=== PATIENT | male | born 1945 | race Caucasian/White ===

== ENCOUNTER 2018-03-02 08:56 | Emergency (ER) | payer MEDICARE, SELFPAY ==
[2018-03-02] VITALS (9 sets, daily range): BP systolic 133–158; BP diastolic 83–107; PULSE 79–93; RESP 14–18; O2SAT 94–99
--- NOTE | 2018-03-02 08:58 | ED_ITS ---
HPI - Neuro Symptoms/Deficit General Chief Complaint: Neuro Symptoms/Deficit Stated Complaint: code stroke Time Seen by Provider: 03/02/18 08:57 Source: patient, family and EMS Mode of arrival: EMS Limitations: no limitations History of Present Illness HPI Narrative: This is a 72-year-old male who comes in with concern for stroke patient was at home he states he felt like he was almost outside his body and fell over from sitting on the bed onto the floor. He states that his speech was very slurred and he could not speak correctly. He states that it is getting better he is not sure if it is back to normal. Patient also not able to use his right upper extremity properly and felt like it was numb. EMS states the was also having difficulty with his right leg. His also agrees with these findings. Patient denies any numbness or weakness that he is noting right now. He does not have any headache, he has not had any vision changes, he has not had any chest pain or shortness of breath, he denies any nausea or vomiting no GI or urinary symptoms. Patient does have known atrial fibrillation and is on Eliquis. He takes this regularly. Patient has had an ablation in the past which was unsuccessful, he has a loop recorder in place on his had hemorrhoid surgery. He sees a rn neonatal icu and they were adjusting his Coreg because his heart rate was too fast. They had increased it but his blood pressure was dropping he was feeling lightheaded so he had returned back to normal level. Patient has not had any prior strokes. He does not smoke he drinks alcohol occasionally, no illicit. He lives in [facility] with his . Related Data Home Medications Medication Instructions Recorded Confirmed apixaban [Eliquis] 5 mg #0 04/28/17 carvedilol [Coreg] #0 04/28/17 digoxin [Lanoxin] 0.125 mg PO QDAY #0 04/28/17 Previous Rx's Medication Instructions Recorded furosemide [Lasix] 20 mg PO Q DAY #10 tab 04/28/17 Allergies Allergy/AdvReac Type Severity Reaction Status Date / Time No Known Allergies Allergy Uncoded 07/11/17 12:50 Review of Systems Review of Systems All systems reviewed & are unremarkable except as noted in HPI and below Constitutional Reports weakness ENT Ears, Nose, Mouth, and Throat: Denies neck pain Cardiovascular Denies dyspnea and Denies dyspnea on exertion Respiratory Denies cough, Denies dyspnea, Denies dyspnea on exertion and Denies wheezing Gastrointestinal Gastrointestinal: Denies abdominal pain, Denies change in bowel habits, Denies diarrhea, Denies nausea and Denies vomiting Genitourinary Denies difficulty urinating Musculoskeletal Denies back pain and Denies neck pain Neurologic Reports as per HPI, Reports abnormal speech, Denies confusion, Reports focal weakness, Reports sensory deficit and Reports weakness Psychiatric Denies confusion Allergic/Immunologic Denies wheezing PFSH Medical History Status post placement of implantable loop recorder (Acute) Surgical History H/O: hemorrhoidectomy (Acute) S/P ablation of atrial fibrillation (Acute) Social History marital status: details: Lives in [facility] household members: spouse Smoking Status: Never smoker alcohol intake: current substance use type: does not use Exam Narrative Exam Narrative: GEN: well nourished, well appearing male, alert and oriented x 3 , patient appears to be in mild distress. HEENT: Atraumatic, pupils are equal round reactive to light, extraocular movements are intact, nares are clear, TMs are clear with no fluid, there is no conjunctival pallor. Throat is clear without any exudates, erythema, tonsillar enlargement or uvular deviation, no facial droop. HEART: Regular rate and rhythm without murmur, clicks, rubs. Pulses are equal in upper and lower extremities LUNGS:Lungs clear to auscultation, no wheezes, rales, crackles, chest moves symmetrically ABD:bowel sounds normal, soft, non-tender, no guarding, rebound, rigidity, no masses noted, no hepatosplenomegaly :No CVA tenderness MSCL: Non-tender, no muscle atrophy, muscles strength 5/5 upper and lower extremities, full range of motion, gait not tested. NEURO:CN 2-12 intact, sensation normal with the exception of feeling different on the right versus left but does feel sensation to light touch, reflexes 2/4 upper and lower extremities. finger nose finger test normal, heel amado test normal, romberg normal Initial Vital Signs Initial Vital Signs: Vital Signs Pulse Rate 93 H 03/02/18 09:10 Respiratory Rate 16 03/02/18 09:10 Blood Pressure 156/102 H 03/02/18 09:10 Pulse Oximetry 99 03/02/18 09:10 Scores NIH Stroke Scale Level of Conciousness: Alert, keenly responsive Ask month/age: Answers both questions correctly. Open/close eyes, close hand: Performs both tasks correctly Best gaze horizontal: Normal Visual coleman: No visual loss Facial palsy: Normal symetrical movement Left arm drift: No drift for full 10 sec Right arm drift: No drift for full 10 sec Left leg drift: No drift for full 10 sec Right leg drift: No drift for full 10 sec Limb ataxia: Absent Sensory on face/arms/legs: Mild to moderate sensory loss, can tell touch Best language: No aphasia, normal Dysarthria: Normal Extinction or inattention: No abnormality Total NIH Stroke scale score: 1 Course Orders Ordered: ED Orders 03/02/18 08:45 Basic Metabolic Panel Stat Complete Blood Count AUTO DIFF Stat Partial Thromboplastin Time Stat Prothrombin Time INR Stat Troponin I Stat 03/02/18 08:56 CT angio head and neck Stat CT head/brain wo con Stat XR chest 1V Stat Urine Drug Screen, Rapid Stat 03/02/18 09:07 EKG-12 Lead Stat Discontinued Medications Aspirin (Aspirin) 325 mg PO NOW ONE Stop: 03/02/18 09:31 Last Admin: 03/02/18 10:12 Dose: Aspirin (Aspirin Chew) 324 mg PO NOW ONE Stop: 03/02/18 10:14 Last Admin: 03/02/18 10:13 Dose: 324 mg Sodium Chloride (Normal Saline 0.9%) 1,000 mls @ 150 mls/hr IV CONT SCAR Last Admin: 03/02/18 10:08 Dose: 150 mls/hr Vital Signs - 8 hr 03/02/18 09:10 03/02/18 09:20 03/02/18 10:10 Pulse Rate 93 H 90 86 Respiratory Rate 16 17 17 Blood Pressure [Right Arm] 156/102 H 149/83 H 134/100 H Pulse Oximetry 99 99 98 03/02/18 10:20 03/02/18 10:40 03/02/18 11:00 Pulse Rate 83 79 80 Respiratory Rate 14 15 18 Blood Pressure [Right Arm] 133/84 134/86 136/83 Pulse Oximetry 99 97 94 03/02/18 11:15 03/02/18 11:30 03/02/18 11:45 Pulse Rate 88 86 85 Respiratory Rate 16 15 Blood Pressure [Right Arm] 158/107 H 150/99 H 156/91 H Pulse Oximetry 98 98 MDM - Neuro Symptoms/Deficit Lab Data Attestation: I reviewed the patient's lab results. Result diagrams: 03/02/18 08:45 03/02/18 08:45 Lab Results 03/02/18 03/02/18 03/02/18 Range/Units 08:45 08:45 08:45 WBC 5.9 (4.5-11.0) X10^3/uL RBC 4.34 L (4.5-5.9) X10^6/uL Hgb 14.3 (13.5-17.5) g/dL Hct 41.9 (41-53) % MCV 96.5 (80-100) fL MCH 32.9 (26-34) PG MCHC 34.1 (30-36) % RDW 14.5 (11.6-14.8) % Plt Count 96 L (150-400) X10^3/uL Neut % (Auto) 46.5 L (50-75) % Lymph % (Auto) 36.7 (25-40) % [place] % (Auto) 13.9 (3-14) % Eos % (Auto) 2.3 (2-4) % Baso % (Auto) 0.6 (0-2) % Neut # (Auto) 2700 L (7902-8427) /uL PT 15.9 H (10.1-12.7) SECONDS INR 1.5 H (0.9-1.3) APTT 43 H (26.4-36.2) SECONDS Sodium 144 (137-145) mmol/L Potassium 3.9 (3.4-5.1) mmol/L Chloride 103 (98-107) mmol/L Carbon Dioxide 28 (22-32) mmol/L BUN 19 (9-20) mg/dL Creatinine 0.70 (0.66-1.25) mg/dL Estimated GFR > 60.0 (>60) mL/min BUN/Creatinine Ratio 27.1 H (6-22) Glucose 110 (80-110) mg/dL Calcium 9.3 (8.4-10.2) mg/dL Troponin I 0.012 (0.01-0.034) ng/mL Point of Care Testing Glucose POC 108 Urine Dip Bedside Urine Glucose Negative Bedside Urine Bilirubin - Negative Bedside Urine Ketone - Negative Urine Specific [place] 1.020 Bedside Urine Occult Blood - Negative Bedside Urine pH 6.0 Bedside Urine Protein - Negative Bedside Urine Urobilinogen - Negative Bedside Urine Nitrite - Negative Bedside Urine Leukocytes - Negative Esterase Imaging Data CT scan - head: Radiologist's impression: [address] [address] [address] Scan Report Signed Patient: Dhaval Olvera WMR#: [id number] : 8Acct:[id number] Age/Sex: 72 / MDate of Service: 03/02/18 Loc: ED Accession Number: [id number] Procedure: CT head/brain wo con Ordering Provider: Heaven Novoa D.O. PROCEDURE: CT HEAD/BRAIN WO CON INDICATIONS: slurred speech, right leg weak TECHNIQUE: Noncontrast 4.5 mm thick angled axial sections acquired from the foramen magnum to the vertex, with coronal and sagittal reformats. For radiation dose reduction, the following was used: automated exposure control, adjustment of mA and/or kV according to patient size. COMPARISON: None. FINDINGS: Image quality: Excellent. CSF spaces: Basal cisterns are patent. No extra-axial fluid collections. The ventricles are symmetric in size and shape. Brain: No intracranial bleeds or masses. There is cerebral volume loss for age , with resultant ventricular and sulcal prominence. There are periventricular and deep white matter chronic small vessel ischemic changes. Skull and face: Calvarium and visualized facial bones appear intact, without suspicious lesions. Sinuses: Mild mucosal thickening noted in the visualized left maxillary sinus. mastoids are clear. IMPRESSION: 1. No acute intracranial disease process. 2. Findings telephoned to Dr. Novoa on 03/02/18 at 0911 hrs. Dictated by: Vidhi Whitt MD, PhD on 03/02/2018 at 9:10 Approved by: Vidhi Whitt MD, PhD on 03/02/2018 at 9:15 Chest x-ray: My impression: cardiomegaly, poor inspiratory effort, ? globular heart vs. positioning. CTA Head and neck: Radiologist's impression: [address] [address] [address] Scan Report Signed Patient: Dhaval Olvera WMR#: [id number] : 8Acct:[id number] Age/Sex: 72 / MDate of Service: 03/02/18 Loc: ED Accession Number: [id number] Procedure: CT angio head and neck Ordering Provider: Heaven Novoa D.O. PROCEDURE: CT ANGIO HEAD AND NECK INDICATIONS: slurred speech, right leg weak TECHNIQUE: Pre-contrast 4.5 mm thick sections acquired from the foramen magnum to the vertex. After the administration of intravenous contrast, 1 mm thick sections acquired from the aortic arch through the Russell of Lopez. Post-contrast 4.5 mm thick sections then re- acquired from the foramen magnum to the vertex. 3-dimensional maximum-intensity- projection (MIP) and/or volume rendering reformats were acquired of the central intracranial vasculature and neck separately. COMPARISON: None. FINDINGS: Image quality: Excellent. BRAIN: CSF spaces: Ventricles are normal in size and shape. Basal cisterns are patent. No extra-axial fluid collections. Brain: No midline shift. No intracranial bleeds or masses. Connolly-white matter interface appears intact. Skull and face: Calvarium and facial bones appear intact, without suspicious lesions. Orbits appear normal. Sinuses: Sinuses and mastoids are clear. HEAD CT ANGIOGRAPHY: Anterior circulation: Intracranial internal carotid arteries are normal in size and flow. Scattered atherosclerotic calcifications noted in the cavernous segments of the internal carotid arteries bilaterally and the supraclinoid segment of the right internal carotid artery which do not cause measurable stenosis. The flow within the paired anterior cerebral arteries is normal and symmetric. The there is slightly diminished flow in the proximal M2 left middle cerebral artery anterior branch may represent the presence of nonocclusive thrombus. The flow within the right middle cerebral artery is normal. The anterior communicating artery is seen. No aneurysms are seen. Posterior circulation: Visualized portions of the vertebral arteries demonstrate normal caliber, and join to form a normal appearing basilar artery. Flow within the posterior cerebral arteries is normal and symmetric. No aneurysms are seen. Dural sinuses demonstrate normal postcontrast enhancement. NECK CT ANGIOGRAPHY: Carotid system: The great vessels demonstrate a conventional anatomy as they arise from the aortic arch. The origins of the common carotid arteries appear patent. The common carotid arteries demonstrate normal caliber and courses. The bifurcation regions are both widely patent. The internal carotid arteries demonstrate normal calibers and courses. Minimal atherosclerotic calcification noted in the origins of the internal carotid arteries bilaterally which do not cause measurable stenosis. Posterior circulation: Calcified atherosclerotic calcification noted at the origin of the left vertebral artery which causes mild stenosis. Origin of the right vertebral artery is fully patent. Patient is right vertebral artery dominant. The more superior extracranial portions of both vertebral arteries also demonstrate normal courses and calibers. They join to form a normal appearing basilar artery. Soft tissues: Visualized neck soft tissues demonstrate no suspicious abnormalities. Partially visualized 3.8 x 5.1 cm heterogeneously enhancing mass is noted in the medial aspect of the right upper lung. 1.8 cm in short axis right paratracheal mediastinal lymph node is noted. 1.2 cm short axis precarinal mediastinal lymph node noted. Bones: No suspicious bony lesions. Spine degenerative disc disease and facet arthropathy. Visualized cervical spine appears normally aligned. IMPRESSION: 1. Slightly decreased flow in proximal left M2 anterior branch possibly related to presence of nonocclusive thrombus. 2. Mild atherosclerotic calcification involving the internal carotid arteries bilaterally without measurable stenosis. 3. Mild atherosclerotic stenosis of the origin of the left vertebral artery. 4. Right vertebral artery fully patent. Patient is right vertebral artery dominant. 5. 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 6. Findings telephoned to Dr. Heaven Novoa on 03/02/2018 at 1057 hrs. Any quantitative measurements of stenosis were performed using NASCET criteria. Dictated by: Vidhi Whitt MD, PhD on 03/02/2018 at 10:48 Approved by: Vidhi Whitt MD, PhD on 03/02/2018 at 11:00 ECG Data Attestation: I personally reviewed and interpreted this ECG as follows: Prior ECG tracings: available for review Interpretation: AFib with rate of 97 QRS of 101 QTC of 449. No ST elevation or depression. Patient has prior EKG from 04/28/2017 which appears similar. MDM Narrative Medical decision making narrative: Patient does appear to be within the window of tPA but is on Eliquis and INR is elevated at 1.5. Patient's symptoms are also rapidly improving he has some slight decreased sensation in the right leg but otherwise a normal NIH exam UA amado and patient feels like his symptoms resolving. At this point we discussed a little bit risk versus benefit but elected not to do tPA. CTA results were called to myself by Dr. Whitt he sees diminished flow in the M2, as well as a mass in the right lung and mediastinal lymphadenopathy. Spoke with Dr. Fuentes from Neurology at [facility], we discussed CT a findings. Plan for code IR and transportation of patient. We reviewed patient's lab work , his imaging including the mass. Discussed with patient and they are comfortable with this plan. Patient has been normotensive here in the department. His symptoms have improved since arrival. His NIH is 1. Patient' s last dose of Eliquis was last night. 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 Critical Care Time Critical Care Time: Yes Total Critical Care Time: 130 Attestation: The high probability of a clinically significant, sudden or life threatening deterioration of the [neurologic] system(s) required my full and direct attention, intervention and personal management. The aggregate critical care time was [] minutes. This time is in addition to time spent performing reported procedures but includes the following: [x] Data Review and interpretation [x] Patient assessment and monitoring of vital signs [x] Documentation [x] Medication orders and management Discharge Plan Departure Patient Disposition: [facility] Clinical Impression: Acute CVA (cerebrovascular accident) Discharge Date/Time: 03/02/18 12:18 Interventions: ED Discharge Assessment Last Done: 03/02/18 12:18 Prescriptions: No Action carvedilol [Coreg] 25 MG tablet Qty: 0 RF: 0 digoxin [Lanoxin] 125 MCG tablet 0.125 mg PO QDAY Qty: 0 RF: 0 apixaban [Eliquis] 5 MG tablet 5 mg Qty: 0 RF: 0 furosemide [Lasix] 20 MG tablet 20 mg PO Q DAY Qty: 10 RF: 0 Referrals: Ken Lemos MD [Primary Care Provider] -
[2018-03-02 09:08] LABS: Add Manual Diff / Slide Review NO; Basophils Percent Auto 0.6 % (0-2); Eosinophils Percent Auto 2.3 % (2-4); Hematocrit 41.9 % (41-53); Hemoglobin 14.3 g/dL (13.5-17.5); Lymphocytes Percent Auto 36.7 % (25-40); Mean Corpuscular HGB Conc 34.1 % (30-36); Mean Corpuscular Hemoglobin 32.9 PG (26-34); Mean Corpuscular Volume 96.5 fL (80-100); Monocytes Percent Auto 13.9 % (3-14); Neutrophils Absolute Auto 2700 /uL (3000-5900); Neutrophils Percent Auto 46.5 % (50-75); Platelet Count 96 X10^3/uL (150-400); Red Blood Cell Count 4.34 X10^6/uL (4.5-5.9); Red Cell Distribution Width 14.5 % (11.6-14.8); White Blood Cell Count 5.9 X10^3/uL (4.5-11.0)
[2018-03-02 09:17] LABS: INR 1.5 (0.9-1.3); Prothrombin Time 15.9 SECONDS (10.1-12.7)
[2018-03-02 09:20] LABS: PTT Partial Thromboplastin Tim 43 SECONDS (26.4-36.2)
[2018-03-02 09:21] LABS: BUN Creatinine Ratio 27.1 (6-22); Blood Urea Nitrogen 19 mg/dL (9-20); Calcium 9.3 mg/dL (8.4-10.2); Carbon Dioxide 28 mmol/L (22-32); Chloride 103 mmol/L (98-107); Estimated Glomerular Filt Rate > 60.0 mL/min (>60); Glucose 110 mg/dL (80-110); HEMOLYSIS < 15 (0-50); Potassium 3.9 mmol/L (3.4-5.1); Sodium 144 mmol/L (137-145)
[2018-03-02 09:32] LABS: Troponin I 0.012 ng/mL (0.01-0.034)
[2018-03-02] MEDS: SODIUM CHLORIDE 0.9% 1,000 ML 150 ML IV (10:08)
[2018-03-02] MEDS: ASPIRIN 81 MG TAB 324 MG PO (10:13)
--- NOTE | 2018-03-02 12:16 | PC.NURSE ---
faxed code IR, attempted to call report, delivery table feeder let me know that a room had not been assigned. i gave my name and number to call if any questions.
--- NOTE | 2018-03-02 12:54 | PC.NURSE ---
daniella De Luna from [facility] called for report. spouse Amrita is being driven down by a friend, as richi was leaving the room they both became tearful so having friend drive her.
--- NOTE | 2018-03-14 10:37 | PC.NURSE ---
NS at 150ml/hr completed at 1215 03/02/18 for a total of 300ml rec'd.
== END 2018-03-02 12:18 | disposition short-term general hospital (02) ==
PROVIDERS: Emergency Provider Emergency Medicine; PCP Family Medicine
DX: I63.9 Cerebral infarction, unspecified (principal)
CPT/HCPCS: 36591; 70450; 70496; 70498; 71045; 80048; 81003; 82962; 84484; 85025; 85610; 85730; 93005; 93010; 93041; 96360; 96361; 99285; 99291